=== PATIENT | male | born 1965 | race Caucasian/White ===

== ENCOUNTER 2016-07-27 11:17 | Emergency (ER) | payer BC, OTHER ==
[~2016-07-27] VITALS: Ht 175.3 cm; Wt 93.0 kg
[~2016-07-27 11:17] MED LIST: 1-ME1LIQ PO; FURO20 PO; INDO25CA PO; PRIL10CA PO; PRIN10TA PO
[2016-07-27 11:18] VITALS: BP 179/90; PULSE 88; RESP 20; TEMP 98.6; O2SAT 100
--- NOTE | 2016-07-27 11:57 | PD ---
HPI Chief Complaint: Edema Time Seen by Provider: 11:45 Travel History International Travel<30 days: No Contact w/Intl Traveler<30days: No Traveled to known affect area: No History of Present Illness HPI 51-year-old male with history of gouty arthritis, anemia, lower extremity dependent edema presents for evaluation of left knee pain and swelling. He woke up with these symptoms this morning. The pain is a throbbing pain that is constant and worse with movement of the left knee. He denies any trauma. He denies any strenuous activity yesterday. Denies any pain or swelling in the calf or the ankles or the feet. He reports that he recently established care with a new primary care physician who is ordered routine blood work including a uric acid level and he is following up with him in 4 days to discuss the results. He denies any recent dietary indiscretions. He does drink alcohol approximately every other day. No other complaints. PFSH Past Medical History Cardiovascular Problems: Yes (HTN) Gastrointestinal Disorders: Yes (ulcer) Gout: Yes Hypertension: Yes Past Surgical History Tonsillectomy: Yes Other Surgery: Yes (egd) Social History Alcohol Use: Yes Tobacco Use: No Substance Use: No Allergies-Medications (Allergen,Severity, Reaction): Coded Allergies: Penicillin (Verified Allergy, Unknown, 07/27/16) Reported Meds & Prescriptions Reported Meds & Active Scripts Active Indomethacin 25 Mg Cap 25 Mg PO TID PRN 5 Days Take with food, milk, or antacids to decrease stomach adverse effects. Reported Indomethacin 25 Mg Cap 25 Mg PO Q8 Prilosec (Omeprazole) 10 Mg Cap 10 Mg PO DAILY Lasix 20 Mg Tab (Furosemide) 20 Mg Tab 20 Mg PO DAILY 1-Methyl 2-Pyrrolidinone (1-Methyl 2-Pyrrolidone (Bulk)) 10 Mg Tab 1 Tab PO DAILY Prinivil (Lisinopril) 10 Mg Tab 10 Mg PO DAILY Review of Systems Except as stated in HPI: all other systems reviewed are Neg Physical Exam Narrative GENERAL: Well-nourished male in no acute distress SKIN: Warm and dry. HEAD: Atraumatic. Normocephalic. EYES: Pupils equal and round. No scleral icterus. No injection or drainage. ENT: No nasal bleeding or discharge. Mucous membranes pink and moist. NECK: Trachea midline. No JVD. CARDIOVASCULAR: Regular rate and rhythm. No murmur appreciated. RESPIRATORY: No accessory muscle use. Clear to auscultation. Breath sounds equal bilaterally. GASTROINTESTINAL: Abdomen soft, non-tender, nondistended. Hepatic and splenic margins not palpable. MUSCULOSKELETAL: Left knee effusion is present. Tender to palpation to the left knee joint. Pain with range of motion of the left knee joint limiting examination. There is no erythema of the knee joint. No puncture wounds. There is no lower extremity tibia or pedal edema. Negative Homans. 2+ dorsalis pedis and posterior tibial pulses. NEUROLOGICAL: Awake and alert. No obvious cranial nerve deficits. Motor grossly within normal limits. Normal speech. Data Data Last Documented VS Vital Signs Date Time Temp Pulse Resp B/P Pulse Ox O2 Delivery O2 Flow Rate FiO2 07/27/16 11:18 98.6 88 20 179/90 100 Room Air Orders Knee, Complete (4vws) (07/27/16 ) Ketorolac Inj (Toradol Inj) (07/27/16 12:00) MDM Medical Decision Making Medical Screen Exam Complete: Yes Emergency Medical Condition: Yes Medical Record Reviewed: Yes Interpretation(s) Left knee x-ray CONCLUSION: Moderate left knee joint effusion. Differential Diagnosis Gouty arthritis, septic arthritis, sprain, ligamentous disruption Narrative Course 51-year-old male with history of gouty arthritis presents after waking up with left knee pain and swelling. Examination reveals a left knee effusion and I suspect that he has a gouty arthritis flareup. I don't suspect a septic arthritis. Plan is for knee x-ray, Toradol injection. He reports success in the past with the use of indomethacin and so he will be given a prescription for indomethacin. He is following up with his primary care physician in 4 days to discuss routine blood work. Diagnosis Primary Impression: Gouty arthritis Additional Instructions: Medication as prescribed. Take with meals. Follow-up closely with primary care physician and return for any emergent medical conditions. Med/Other Pt SpecificInfo: Prescription(s) given Scripts Indomethacin 25 Mg Cap25 Mg PO TID PRN (PAIN SCALE 6 TO 10) 5 Days Ref 0 Take with food, milk, or antacids to decrease stomach adverse effects. Prov:Abhilash Hernandez MD 07/27/16 Disposition: 01 DISCHARGE HOME Condition: Stable Kamar Zendejas Jul 27, 2016 11:57
[2016-07-27] MEDS ORDERED: KETOROLAC TROMETHAMINE 60 MG/2 ML (IM) VIAL IM ONE (12:00)
--- NOTE | 2016-07-27 12:17 | RADRPT ---
EXAM DATE/TIME: 07/27/2016 12:01 [facility] COMPARISON: No previous studies available for comparison. INDICATIONS : Pain and swelling left knee MEDICAL HISTORY : Hypertension. Gout SURGICAL HISTORY : None. ENCOUNTER: Initial ACUITY: 2 weeks PAIN SCORE: 9/10 LOCATION: Left Knee FINDINGS: A fracture is not seen. There is a moderate joint effusion. No erosions are seen. Spurs are seen at t he anterior aspect of the patella. CONCLUSION: Moderate left knee joint effusion. Leon Mariee MD on July 27, 2016 at 12:14 Board Certified Radiologist. This report was verified electronically.
[2016-07-27] MEDS ORDERED: INDO25CA PO (12:20)
== END 2016-07-27 12:46 | disposition home or self-care (01) ==
LOC: NETRI 11:17
DX: M10.062 Idiopathic gout, left knee (principal); I10 Essential (primary) hypertension
CPT/HCPCS: 73564; 96372; 99283; J1885